=== PATIENT | female | born 1960 | race Caucasian/White ===

== ENCOUNTER → 2018-10-04 | Outpatient (CLI) | payer OTHER ==
[~2018-10-04] MED LIST: ALPR.5 PO; AMPDEX5 PO; Adderall 20 MG20 MG PO; CEPH500 PO; CLON1 PO; HYDACE5 PO; HYDACE5325 PO; PENVK500 PO; ROXICODONE5 MG PO; RXHYD5325 PO; SERT100 PO; SERT25 PO
[2018-10-04 16:03] LABS: Source, Urine Clean Catch
[2018-10-04 16:40] LABS: Bilirubin, Urine Neg (Neg); Blood, Urine 2+ (Neg); Glucose Qualitative, Urine Neg (Neg); Ketones, Urine Neg (Neg); Leukocyte Esterase, Urine 3+ (Neg); Nitrite, Urine Pos (Neg); Protein, Urine 1+ (Neg); Urobilinogen, Urine 3+ (Normal)
[2018-10-04 17:23] LABS: Appearance, Urine Cloudy (Clear); Color, Urine Yellow (P-Yellow)
[2018-10-04 17:24] LABS: Bacteria Many /hpf; Squamous Epithelial Cells Many /hpf (Few)
== END | disposition home or self-care (01) ==
LOC: LAB SHORT 16:01 → LAB 16:01
PROVIDERS: Nurse Practitioner
DX: N39.0 Urinary tract infection, site not specified (principal)
CPT/HCPCS: 81001; 87077; 87086; 87186

== ENCOUNTER → 2018-12-27 | Outpatient (CLI) | payer OTHER ==
[2018-12-27 16:10] LABS: U Amphetamine Screen DETECTED; U Barbituate Screen Not Detected; U Benzodiazapine Screen DETECTED; U Buprenorphine Screen Not Detected; U Cannabinoids Screen Not Detected; U Cocaine Screen Not Detected; U Methadone Screen Not Detected; U Methamphetamine Screen DETECTED; U Opiates Screen Not Detected; U Oxycodone Screen Not Detected; U Phencyclidine Screen Not Detected; U Propoxyphene Screen Not Detected
== END ==
LOC: LAB SHORT 15:12 → LAB 15:12
PROVIDERS: Psychiatry & Neurology Psychiatry
DX: F33.1 Major depressive disorder, recurrent, moderate (principal)

== ENCOUNTER 2019-04-09 21:28 | Inpatient (IN) | payer OTHER ==
[~2019-04-09] VITALS: Ht 165.1 cm; Wt 134.2 kg
[2019-04-09 22:23] LABS: BASOPHILS ABSOLUTE AUTO 0.03 K/mm3 (0.00-0.23); BASOPHILS PERCENT AUTO 0 % (0-2); EOSINOPHILS ABSOLUTE AUTO 0.17 K/mm3 (0.00-0.68); EOSINOPHILS PERCENT AUTO 2 % (0-6); Hematocrit 37.1 % (33.0-51.0); Hemoglobin 12.5 g/dL (11.5-16.0); IMMATURE GRAN ABSOLUTE AUTO 0.02 K/mm3 (0.00-0.10); IMMATURE GRAN PERCENT AUTO 0 % (0-1); LYMPHOCYTES ABSOLUTE AUTO 2.29 K/mm3 (0.84-5.20); LYMPHOCYTES PERCENT AUTO 31 % (21-46); MONOCYTES ABSOLUTE AUTO 0.68 K/mm3 (0.16-1.47); MONOCYTES PERCENT AUTO 9 % (4-13); Mean Corpuscular HGB 31.7 pg (26.0-34.0); Mean Corpuscular HGB Conc 33.7 g/dL (31.5-36.5); Mean Corpuscular Volume 94 fL (80-100); Mean Platelet Volume 10.3 fL (9.1-12.4); NEUTROPHILS ABSOLUTE AUTO 4.18 K/mm3 (1.96-9.15); NEUTROPHILS PERCENT AUTO 57 % (41-73); Platelet Count 105 K/mm3 (150-400); RDW Coefficient Variation 12.6 % (11.7-14.2); RDW Standard Deviation 43.8 fL (35.1-46.3); Red Blood Cell Count 3.94 M/mm3 (3.80-5.20); White Blood Cell Count 7.37 K/mm3 (4.00-11.30)
[2019-04-09 22:33] LABS: Alanine Aminotransfer (ALT/SGP 44 U/L (12-78); Albumin/Globulin Ratio 0.7 (0.8-1.8); Alk Phos 101 U/L (50-136); Anion Gap 6 mmol/L (6-16); Aspartate Aminotrans (AST/SGOT 60 U/L (12-37); Blood Urea Nitrogen 13 mg/dL (8-24); Bun/Creatinine Ratio 20.9 (12.0-20.0); CO2, Blood 24 mmol/L (21-32); Calcium, Blood 8.4 mg/dL (8.5-10.1); Chloride, Blood 108 mmol/L (98-108); Creatinine, Blood 0.62 mg/dL (0.40-1.00); Globulin, Blood 4.2 g/dL (2.2-4.0); Glomerular Filtration Rate >60 (60-); Glucose, Blood 102 mg/dL (70-99); Potassium, Blood 3.6 mmol/L (3.5-5.5); Sodium, Blood 138 mmol/L (136-145); Total Protein, Blood 7.2 g/dL (6.4-8.2)
--- NOTE | 2019-04-10 06:21 | NUR ---
Shift summary. Pt admitted at 0320. Pt just wants to be left alone. Unable to get pt to give us history. Abdomen distended. umbilical area very tender to touch. Pt given fentanyl and haldol in er so sleeps if we leave her alone. IV was bad and had to be replaced in right arm. LR started.
--- NOTE | 2019-04-10 14:25 | NUR ---
PT GOING TO SURGERY NOW, INFORMED THE PT'S MOTHER VIA PHONE CALL
--- NOTE | 2019-04-10 14:51 | NUR ---
Patient confirms NPO status and agrees with scheduled surgery. History, Chart, Medications and Allergies reviewed before start of procedure.Surgical site prepped with 2% Chlorhexidine cloth wipe. PATIENT TRANSFERED VIA PT BED. HOVER MAT PLACED UNDER PT AFTER ARRIVAL. PT ABLE TO STAND AND ASSIST. 18G IV ALREADY IN PLACE IN RIGHT FOREARM UPON ARRIVAL TO SURGERY DEPT. PATENT AND HOOKED TO FLUIDS.
--- NOTE | 2019-04-10 16:32 | NUR ---
04/10/19 1632 Virgilio Glass 7800 ML CLEAR YELLOW FLUID DRAINED FROM ABDOMEN PRIOR TO PRIMARY REPAIR OF UMBILICAL HERNIA.
--- NOTE | 2019-04-10 17:45 | NUR ---
SUMMARY PT STILL IN SURGERY
--- NOTE | 2019-04-10 18:29 | NUR ---
PT BACK FROM OR, ABLE TO STAND AND TRANSFER TO THE BED, ABD SOFT, GAUZE TO BELLY BUTTON COVERED WITH CLEAR DRESSING, NO DRAINAGE, PT DENIES PAIN
[2019-04-11 05:03] LABS: BASOPHILS ABSOLUTE AUTO 0.01 K/mm3 (0.00-0.23); BASOPHILS PERCENT AUTO 0 % (0-2); EOSINOPHILS PERCENT AUTO 0 % (0-6); Hematocrit 42.2 % (33.0-51.0); IMMATURE GRAN ABSOLUTE AUTO 0.03 K/mm3 (0.00-0.10); IMMATURE GRAN PERCENT AUTO 1 % (0-1); LYMPHOCYTES ABSOLUTE AUTO 1.23 K/mm3 (0.84-5.20); LYMPHOCYTES PERCENT AUTO 19 % (21-46); MONOCYTES PERCENT AUTO 3 % (4-13); Mean Corpuscular HGB 31.3 pg (26.0-34.0); Mean Corpuscular HGB Conc 33.2 g/dL (31.5-36.5); Mean Corpuscular Volume 94 fL (80-100); Mean Platelet Volume 10.5 fL (9.1-12.4); NEUTROPHILS ABSOLUTE AUTO 5.04 K/mm3 (1.96-9.15); NEUTROPHILS PERCENT AUTO 77 % (41-73); Platelet Count 123 K/mm3 (150-400); RDW Coefficient Variation 12.3 % (11.7-14.2); RDW Standard Deviation 42.6 fL (35.1-46.3); Red Blood Cell Count 4.48 M/mm3 (3.80-5.20); White Blood Cell Count 6.51 K/mm3 (4.00-11.30)
--- NOTE | 2019-04-11 05:22 | NUR ---
Shift summary: Pt states she feels much better this am and has slept most of shift. No c/o discomfort during the night. Pt has been alert, oriented and coooperative with cares tonight. Tolerating antibiotics well. Banana bag given. No s/s detox noted.
[2019-04-11 05:34] LABS: Alanine Aminotransfer (ALT/SGP 36 U/L (12-78); Albumin, Blood 2.8 g/dL (3.4-5.0); Albumin/Globulin Ratio 0.7 (0.8-1.8); Alk Phos 66 U/L (50-136); Anion Gap 6 mmol/L (6-16); Aspartate Aminotrans (AST/SGOT 41 U/L (12-37); Bilirubin, Total 1.2 mg/dL (0.1-1.0); Blood Urea Nitrogen 10 mg/dL (8-24); Bun/Creatinine Ratio 16.7 (12.0-20.0); CO2, Blood 26 mmol/L (21-32); Calcium, Blood 8.2 mg/dL (8.5-10.1); Chloride, Blood 108 mmol/L (98-108); Globulin, Blood 4.3 g/dL (2.2-4.0); Glomerular Filtration Rate >60 (60-); Glucose, Blood 140 mg/dL (70-99); Magnesium, Blood 2.1 mg/dL (1.6-2.4); Phosphorus, Blood 3.6 mg/dL (2.5-4.9); Potassium, Blood 4.7 mmol/L (3.5-5.5); Sodium, Blood 140 mmol/L (136-145); Total Protein, Blood 7.1 g/dL (6.4-8.2)
[2019-04-11] MEDS ORDERED: ROXICODONE5 MG PO (17:06)
[2019-04-11] MEDS ORDERED: FOLI1 PO (17:06)
[2019-04-11] MEDS ORDERED: ONDA4ODT MM (17:07)
[2019-04-11] MEDS ORDERED: Culturelle1 CAP PO (17:07)
[2019-04-11] MEDS ORDERED: AMOCLA875 PO (17:09)
[2019-04-11] MEDS ORDERED: SERT100 PO (17:10)
[2019-04-11] MEDS ORDERED: Thiamine HCl100 MG PO (17:11)
--- NOTE | 2019-04-11 18:22 | NUR ---
PT DISCHARGED TO HOME. PT PROVIDED EDUCATION AND MEDICATION LIST. PT VERBALIZED UNDERSTANDING OF EDUCATION, MEDICATIONS, AND DISCHARGE INSTRUCTIONS. PT'S MOTHER IS PROVIDING TRANSPORTATION HOME. PT ALERT AND AMBULATORY. PT TAKEN TO MOTHER'S CAR IN WHEELCHAIR BY JOSE JASON. PT LEFT WITH BELONGINGS.
[2019-05-15] MEDS ORDERED: ALBU90OI INH (13:32)
[2019-05-15] MEDS ORDERED: DIPH50 PO (13:33)
[2019-05-15] MEDS ORDERED: Aldactone100 MG PO (13:33)
[2019-05-15] MEDS ORDERED: FURO40 PO (13:33)
== END 2019-04-11 18:05 | disposition home or self-care (01) | DRG 354 ==
LOC: ER 21:28 → MEDS 04-10 00:59
PROVIDERS: Emergency Medicine; Family Medicine; Surgery; ADMIT Family Medicine
PROC: 0W9G3ZZ Drainage of Peritoneal Cavity, Percutaneous Approach (ICD-10-PCS; 2019-04-10)
PROC: 0WQF0ZZ Repair Abdominal Wall, Open Approach (ICD-10-PCS; principal; 2019-04-10 13:30)
DX: K42.0 Umbilical hernia with obstruction, without gangrene (principal); E87.2 Acidosis; Z68.42 Body mass index [BMI] 45.0-49.9, adult; R65.10 Systemic inflammatory response syndrome (SIRS) of non-infectious origin without acute organ dysfunction; L03.311 Cellulitis of abdominal wall; K70.31 Alcoholic cirrhosis of liver with ascites; E66.01 Morbid (severe) obesity due to excess calories; B18.2 Chronic viral hepatitis C; F41.9 Anxiety disorder, unspecified; F32.9 Major depressive disorder, single episode, unspecified; F98.8 Other specified behavioral and emotional disorders with onset usually occurring in childhood and adolescence; Z66 Do not resuscitate; F17.210 Nicotine dependence, cigarettes, uncomplicated; D69.6 Thrombocytopenia, unspecified; F10.10 Alcohol abuse, uncomplicated; Z79.899 Other long term (current) drug therapy; Z88.8 Allergy status to other drugs, medicaments and biological substances
CPT/HCPCS: 36415; 74177; 80053; 82140; 83605; 83735; 84100; 85025; 87040; 96361; 96365; 96375; 99285-25; J1100; J1170; J1630; J1650; J2405; J2543; J2704; J3010; J3411; J3475; J7030; J7042; J7050; J7120; Q9967

== ENCOUNTER 2019-04-17 10:00 | Emergency (ER) | payer OTHER ==
[~2019-04-17] VITALS: Ht 165.1 cm; Wt 129.3 kg
[~2019-04-17 10:00] MED LIST changes: +AMOCLA875 PO; +Culturelle1 CAP PO; +FOLI1 PO; +ONDA4ODT MM; +Thiamine HCl100 MG PO
[2019-04-17 10:41] LABS: BASOPHILS ABSOLUTE AUTO 0.03 K/mm3 (0.00-0.23); BASOPHILS PERCENT AUTO 0 % (0-2); EOSINOPHILS ABSOLUTE AUTO 0.19 K/mm3 (0.00-0.68); EOSINOPHILS PERCENT AUTO 3 % (0-6); Hematocrit 39.9 % (33.0-51.0); IMMATURE GRAN ABSOLUTE AUTO 0.02 K/mm3 (0.00-0.10); IMMATURE GRAN PERCENT AUTO 0 % (0-1); LYMPHOCYTES ABSOLUTE AUTO 2.46 K/mm3 (0.84-5.20); LYMPHOCYTES PERCENT AUTO 37 % (21-46); MONOCYTES ABSOLUTE AUTO 0.57 K/mm3 (0.16-1.47); MONOCYTES PERCENT AUTO 9 % (4-13); Mean Corpuscular HGB 31.3 pg (26.0-34.0); Mean Corpuscular HGB Conc 32.6 g/dL (31.5-36.5); Mean Corpuscular Volume 96 fL (80-100); Mean Platelet Volume 10.3 fL (9.1-12.4); NEUTROPHILS PERCENT AUTO 51 % (41-73); Platelet Count 118 K/mm3 (150-400); RDW Coefficient Variation 13.1 % (11.7-14.2); RDW Standard Deviation 46.5 fL (35.1-46.3); Red Blood Cell Count 4.15 M/mm3 (3.80-5.20); White Blood Cell Count 6.67 K/mm3 (4.00-11.30)
[2019-04-17 10:54] LABS: Alanine Aminotransfer (ALT/SGP 37 U/L (12-78); Albumin, Blood 2.7 g/dL (3.4-5.0); Albumin/Globulin Ratio 0.7 (0.8-1.8); Alk Phos 156 U/L (50-136); Anion Gap 5 mmol/L (6-16); Aspartate Aminotrans (AST/SGOT 52 U/L (12-37); Bilirubin, Total 0.5 mg/dL (0.1-1.0); Blood Urea Nitrogen 8 mg/dL (8-24); Bun/Creatinine Ratio 14.5 (12.0-20.0); CO2, Blood 25 mmol/L (21-32); Calcium, Blood 8.2 mg/dL (8.5-10.1); Chloride, Blood 112 mmol/L (98-108); Creatinine, Blood 0.55 mg/dL (0.40-1.00); Globulin, Blood 3.9 g/dL (2.2-4.0); Glomerular Filtration Rate >60 (60-); Glucose, Blood 116 mg/dL (70-99); Potassium, Blood 4.6 mmol/L (3.5-5.5); Sodium, Blood 142 mmol/L (136-145); Total Protein, Blood 6.6 g/dL (6.4-8.2)
[2019-04-17 10:55] LABS: International Normalized Ratio 1.08; Prothrombin Time Results 11.4 Sec (9.7-11.5)
[2019-04-17] MEDS ORDERED: Aldactone50 MG PO (12:03)
[2019-05-15] MEDS ORDERED: ALBU90OI INH (13:32)
[2019-05-15] MEDS ORDERED: DIPH50 PO (13:33)
[2019-05-15] MEDS ORDERED: Aldactone100 MG PO (13:33)
[2019-05-15] MEDS ORDERED: FURO40 PO (13:33)
== END 2019-04-17 12:21 | disposition home or self-care (01) ==
LOC: ER 10:00
PROVIDERS: Emergency Medicine
DX: R18.8 Other ascites (principal); F41.9 Anxiety disorder, unspecified; F32.9 Major depressive disorder, single episode, unspecified; F98.8 Other specified behavioral and emotional disorders with onset usually occurring in childhood and adolescence; F17.210 Nicotine dependence, cigarettes, uncomplicated; Z88.8 Allergy status to other drugs, medicaments and biological substances
CPT/HCPCS: 36415; 49083; 80053; 85025; 85610; 85730; 99284-25

== ENCOUNTER 2019-04-23 17:25 | Emergency (ER) | payer OTHER ==
[~2019-04-23] VITALS: Ht 165.1 cm; Wt 129.3 kg
[~2019-04-23 17:25] MED LIST changes: +Aldactone50 MG PO
[2019-04-23 18:42] LABS: BASOPHILS ABSOLUTE AUTO 0.04 K/mm3 (0.00-0.23); BASOPHILS PERCENT AUTO 0 % (0-2); EOSINOPHILS ABSOLUTE AUTO 0.13 K/mm3 (0.00-0.68); EOSINOPHILS PERCENT AUTO 2 % (0-6); Hematocrit 43.8 % (33.0-51.0); Hemoglobin 14.2 g/dL (11.5-16.0); IMMATURE GRAN ABSOLUTE AUTO 0.03 K/mm3 (0.00-0.10); IMMATURE GRAN PERCENT AUTO 0 % (0-1); LYMPHOCYTES PERCENT AUTO 34 % (21-46); MONOCYTES ABSOLUTE AUTO 0.61 K/mm3 (0.16-1.47); MONOCYTES PERCENT AUTO 7 % (4-13); Mean Corpuscular HGB 30.9 pg (26.0-34.0); Mean Corpuscular HGB Conc 32.4 g/dL (31.5-36.5); Mean Corpuscular Volume 95 fL (80-100); Mean Platelet Volume 10.1 fL (9.1-12.4); NEUTROPHILS ABSOLUTE AUTO 5.11 K/mm3 (1.96-9.15); NEUTROPHILS PERCENT AUTO 57 % (41-73); Platelet Count 153 K/mm3 (150-400); RDW Coefficient Variation 12.4 % (11.7-14.2); RDW Standard Deviation 43.4 fL (35.1-46.3); White Blood Cell Count 8.92 K/mm3 (4.00-11.30)
[2019-04-23 18:57] LABS: International Normalized Ratio 1.08; Prothrombin Time Results 11.4 Sec (9.7-11.5)
[2019-04-23 19:13] LABS: Alanine Aminotransfer (ALT/SGP 37 U/L (12-78); Albumin, Blood 3.2 g/dL (3.4-5.0); Albumin/Globulin Ratio 0.7 (0.8-1.8); Alk Phos 125 U/L (50-136); Anion Gap 4 mmol/L (6-16); Aspartate Aminotrans (AST/SGOT 53 U/L (12-37); Bilirubin, Total 0.8 mg/dL (0.1-1.0); Blood Urea Nitrogen 16 mg/dL (8-24); Bun/Creatinine Ratio 22.4 (12.0-20.0); CO2, Blood 26 mmol/L (21-32); Calcium, Blood 8.5 mg/dL (8.5-10.1); Chloride, Blood 105 mmol/L (98-108); Creatinine, Blood 0.71 mg/dL (0.40-1.00); Globulin, Blood 4.8 g/dL (2.2-4.0); Glomerular Filtration Rate >60 (60-); Glucose, Blood 109 mg/dL (70-99); Potassium, Blood 4.4 mmol/L (3.5-5.5); Sodium, Blood 135 mmol/L (136-145)
[2019-04-23] MEDS ORDERED: ALPR1 PO (19:45)
[2019-04-23] MEDS ORDERED: CLON1 PO (19:45)
[2019-05-15] MEDS ORDERED: ALBU90OI INH (13:32)
[2019-05-15] MEDS ORDERED: DIPH50 PO (13:33)
[2019-05-15] MEDS ORDERED: FURO40 PO (13:33)
[2019-05-15] MEDS ORDERED: Aldactone100 MG PO (13:33)
== END 2019-04-23 21:14 | disposition home or self-care (01) ==
LOC: ER 17:25
PROVIDERS: Physician Assistant
DX: K70.31 Alcoholic cirrhosis of liver with ascites (principal); Z88.8 Allergy status to other drugs, medicaments and biological substances; Z79.899 Other long term (current) drug therapy; F32.9 Major depressive disorder, single episode, unspecified; F41.9 Anxiety disorder, unspecified; F17.210 Nicotine dependence, cigarettes, uncomplicated
CPT/HCPCS: 36415; 80053; 85025; 85610; 99284

== ENCOUNTER 2019-04-24 15:02 | Day surgery (SDC) | payer OTHER ==
[~2019-04-24 15:02] MED LIST changes: +ALPR1 PO
[2019-05-15] MEDS ORDERED: ALBU90OI INH (13:32)
[2019-05-15] MEDS ORDERED: Aldactone100 MG PO (13:33)
[2019-05-15] MEDS ORDERED: FURO40 PO (13:33)
[2019-05-15] MEDS ORDERED: DIPH50 PO (13:33)
== END 2019-04-24 23:07 | disposition home or self-care (01) ==
LOC: US 15:02
DX: K70.31 Alcoholic cirrhosis of liver with ascites (principal); F41.9 Anxiety disorder, unspecified; F32.9 Major depressive disorder, single episode, unspecified; F17.210 Nicotine dependence, cigarettes, uncomplicated; Z88.8 Allergy status to other drugs, medicaments and biological substances; Z79.899 Other long term (current) drug therapy
CPT/HCPCS: 49083

== ENCOUNTER 2019-04-30 11:00 | Day surgery (SDC) | payer OTHER ==
[2019-05-15] MEDS ORDERED: ALBU90OI INH (13:32)
[2019-05-15] MEDS ORDERED: FURO40 PO (13:33)
[2019-05-15] MEDS ORDERED: Aldactone100 MG PO (13:33)
[2019-05-15] MEDS ORDERED: DIPH50 PO (13:33)
== END 2019-04-30 22:56 | disposition home or self-care (01) ==
LOC: US 11:00
DX: K70.31 Alcoholic cirrhosis of liver with ascites (principal)
CPT/HCPCS: 76705

== ENCOUNTER 2019-05-07 20:09 | Emergency (ER) | payer OTHER ==
[~2019-05-07] VITALS: Ht 165.1 cm; Wt 120.2 kg
[2019-05-07 22:37] LABS: BASOPHILS ABSOLUTE AUTO 0.03 K/mm3 (0.00-0.23); BASOPHILS PERCENT AUTO 0 % (0-2); EOSINOPHILS ABSOLUTE AUTO 0.17 K/mm3 (0.00-0.68); EOSINOPHILS PERCENT AUTO 2 % (0-6); Hematocrit 45.4 % (33.0-51.0); IMMATURE GRAN ABSOLUTE AUTO 0.06 K/mm3 (0.00-0.10); IMMATURE GRAN PERCENT AUTO 1 % (0-1); LYMPHOCYTES ABSOLUTE AUTO 3.27 K/mm3 (0.84-5.20); LYMPHOCYTES PERCENT AUTO 31 % (21-46); MONOCYTES ABSOLUTE AUTO 0.81 K/mm3 (0.16-1.47); MONOCYTES PERCENT AUTO 8 % (4-13); Mean Corpuscular HGB 30.7 pg (26.0-34.0); Mean Corpuscular Volume 93 fL (80-100); Mean Platelet Volume 10.2 fL (9.1-12.4); NEUTROPHILS ABSOLUTE AUTO 6.11 K/mm3 (1.96-9.15); NEUTROPHILS PERCENT AUTO 58 % (41-73); Platelet Count 169 K/mm3 (150-400); RDW Coefficient Variation 12.6 % (11.7-14.2); RDW Standard Deviation 42.7 fL (35.1-46.3); Red Blood Cell Count 4.89 M/mm3 (3.80-5.20); White Blood Cell Count 10.45 K/mm3 (4.00-11.30)
[2019-05-07 22:55] LABS: Alanine Aminotransfer (ALT/SGP 28 U/L (12-78); Albumin, Blood 3.2 g/dL (3.4-5.0); Albumin/Globulin Ratio 0.7 (0.8-1.8); Alk Phos 98 U/L (50-136); Anion Gap 2 mmol/L (6-16); Aspartate Aminotrans (AST/SGOT 46 U/L (12-37); Blood Urea Nitrogen 12 mg/dL (8-24); CO2, Blood 29 mmol/L (21-32); Calcium, Blood 8.8 mg/dL (8.5-10.1); Chloride, Blood 104 mmol/L (98-108); Creatinine, Blood 0.93 mg/dL (0.40-1.00); Globulin, Blood 4.5 g/dL (2.2-4.0); Glomerular Filtration Rate >60 (60-); Glucose, Blood 107 mg/dL (70-99); Sodium, Blood 135 mmol/L (136-145); Total Protein, Blood 7.7 g/dL (6.4-8.2)
[2019-05-07] MEDS ORDERED: SPIR25 PO (23:43)
[2019-05-15] MEDS ORDERED: ALBU90OI INH (13:32)
[2019-05-15] MEDS ORDERED: Aldactone100 MG PO (13:33)
[2019-05-15] MEDS ORDERED: FURO40 PO (13:33)
[2019-05-15] MEDS ORDERED: DIPH50 PO (13:33)
== END 2019-05-08 00:16 | disposition home or self-care (01) ==
LOC: ER 20:09
PROVIDERS: Physician Assistant
DX: R18.8 Other ascites (principal); Z88.8 Allergy status to other drugs, medicaments and biological substances; Z79.899 Other long term (current) drug therapy; F32.9 Major depressive disorder, single episode, unspecified; F41.9 Anxiety disorder, unspecified; F17.210 Nicotine dependence, cigarettes, uncomplicated
CPT/HCPCS: 36415; 80053; 85025; 99283

== ENCOUNTER 2019-05-12 14:28 | Day surgery (SDC) | payer OTHER ==
[~2019-05-12 14:28] MED LIST changes: +SPIR25 PO
[2019-05-15] MEDS ORDERED: ALBU90OI INH (13:32)
[2019-05-15] MEDS ORDERED: DIPH50 PO (13:33)
[2019-05-15] MEDS ORDERED: FURO40 PO (13:33)
[2019-05-15] MEDS ORDERED: Aldactone100 MG PO (13:33)
== END 2019-05-12 22:49 | disposition home or self-care (01) ==
LOC: US 14:28
DX: K70.31 Alcoholic cirrhosis of liver with ascites (principal)
CPT/HCPCS: 49083

== ENCOUNTER 2019-05-23 05:00 | Day surgery (SDC) | payer OTHER ==
[~2019-05-23] VITALS: Ht 165.1 cm; Wt 118.5 kg
[~2019-05-23 05:00] MED LIST changes: +ALBU90OI INH; +Aldactone100 MG PO; +DIPH50 PO; +FURO40 PO
[2019-05-23] MEDS ORDERED: Aldactone100 MG (10:01)
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
== END 2019-05-23 11:50 | disposition home or self-care (01) ==
LOC: ORSCSDS 05:00
DX: K74.60 Unspecified cirrhosis of liver (principal); Z86.010 Personal history of colon polyps; Z53.9 Procedure and treatment not carried out, unspecified reason
CPT/HCPCS: J7120

== ENCOUNTER 2019-07-12 20:19 | Emergency (ER) | payer OTHER ==
[~2019-07-12] VITALS: Ht 165.1 cm; Wt 117.9 kg
[~2019-07-12 20:19] MED LIST changes: +Aldactone100 MG
[2019-07-12 21:20] LABS: BASOPHILS ABSOLUTE AUTO 0.03 K/mm3 (0.00-0.23); BASOPHILS PERCENT AUTO 0 % (0-2); EOSINOPHILS ABSOLUTE AUTO 0.12 K/mm3 (0.00-0.68); EOSINOPHILS PERCENT AUTO 2 % (0-6); Hematocrit 48.2 % (33.0-51.0); Hemoglobin 15.4 g/dL (11.5-16.0); IMMATURE GRAN ABSOLUTE AUTO 0.02 K/mm3 (0.00-0.10); IMMATURE GRAN PERCENT AUTO 0 % (0-1); LYMPHOCYTES ABSOLUTE AUTO 2.24 K/mm3 (0.84-5.20); LYMPHOCYTES PERCENT AUTO 29 % (21-46); MONOCYTES ABSOLUTE AUTO 0.53 K/mm3 (0.16-1.47); MONOCYTES PERCENT AUTO 7 % (4-13); Mean Corpuscular HGB 28.9 pg (26.0-34.0); Mean Corpuscular Volume 91 fL (80-100); Mean Platelet Volume 9.6 fL (9.1-12.4); NEUTROPHILS PERCENT AUTO 62 % (41-73); Platelet Count 168 K/mm3 (150-400); RDW Coefficient Variation 14.1 % (11.7-14.2); RDW Standard Deviation 47.4 fL (35.1-46.3); Red Blood Cell Count 5.32 M/mm3 (3.80-5.20); White Blood Cell Count 7.74 K/mm3 (4.00-11.30)
[2019-07-12 21:35] LABS: International Normalized Ratio 1.13; Prothrombin Time Results 11.8 Sec (9.7-11.5)
[2019-07-12 21:38] LABS: Alanine Aminotransfer (ALT/SGP 35 U/L (12-78); Albumin, Blood 3.2 g/dL (3.4-5.0); Albumin/Globulin Ratio 0.7 (0.8-1.8); Alk Phos 106 U/L (50-136); Anion Gap 7 mmol/L (6-16); Aspartate Aminotrans (AST/SGOT 63 U/L (12-37); Bilirubin, Total 0.6 mg/dL (0.1-1.0); Blood Urea Nitrogen 17 mg/dL (8-24); Bun/Creatinine Ratio 22.5 (12.0-20.0); CO2, Blood 22 mmol/L (21-32); Calcium, Blood 8.2 mg/dL (8.5-10.1); Chloride, Blood 109 mmol/L (98-108); Creatinine, Blood 0.75 mg/dL (0.40-1.00); Globulin, Blood 4.9 g/dL (2.2-4.0); Glomerular Filtration Rate >60 (60-); Glucose, Blood 104 mg/dL (70-99); Sodium, Blood 138 mmol/L (136-145); Total Protein, Blood 8.1 g/dL (6.4-8.2)
== END 2019-07-12 23:05 | disposition home or self-care (01) ==
LOC: ER 20:19
PROVIDERS: Physician Assistant
DX: K70.31 Alcoholic cirrhosis of liver with ascites (principal); F32.9 Major depressive disorder, single episode, unspecified; F41.9 Anxiety disorder, unspecified; Z88.8 Allergy status to other drugs, medicaments and biological substances; Z88.1 Allergy status to other antibiotic agents; Z79.899 Other long term (current) drug therapy; Z87.891 Personal history of nicotine dependence
CPT/HCPCS: 80053; 82140; 85025; 85610; 99284

== ENCOUNTER 2019-07-18 11:03 | Day surgery (SDC) | payer OTHER | END 2019-07-18 13:27 | disposition home or self-care (01) | LOC: ATC 11:03 | DX: K70.31 Alcoholic cirrhosis of liver with ascites (principal); B18.2 Chronic viral hepatitis C; Z79.51 Long term (current) use of inhaled steroids; Z79.2 Long term (current) use of antibiotics; Z79.899 Other long term (current) drug therapy; Z88.1 Allergy status to other antibiotic agents; Z88.8 Allergy status to other drugs, medicaments and biological substances; Z87.891 Personal history of nicotine dependence | CPT/HCPCS: 49083; 96365; P9046 ==

== ENCOUNTER 2019-08-06 10:57 | Emergency (ER) | payer OTHER ==
[~2019-08-06] VITALS: Ht 165.1 cm; Wt 120.2 kg
[2019-08-06 11:37] LABS: BASOPHILS ABSOLUTE AUTO 0.06 K/mm3 (0.00-0.23); BASOPHILS PERCENT AUTO 1 % (0-2); EOSINOPHILS ABSOLUTE AUTO 0.17 K/mm3 (0.00-0.68); EOSINOPHILS PERCENT AUTO 2 % (0-6); Hemoglobin 17.4 g/dL (11.5-16.0); IMMATURE GRAN ABSOLUTE AUTO 0.03 K/mm3 (0.00-0.10); IMMATURE GRAN PERCENT AUTO 0 % (0-1); LYMPHOCYTES ABSOLUTE AUTO 3.18 K/mm3 (0.84-5.20); LYMPHOCYTES PERCENT AUTO 33 % (21-46); MONOCYTES ABSOLUTE AUTO 0.72 K/mm3 (0.16-1.47); MONOCYTES PERCENT AUTO 8 % (4-13); Mean Corpuscular HGB 28.2 pg (26.0-34.0); Mean Corpuscular HGB Conc 31.6 g/dL (31.5-36.5); Mean Corpuscular Volume 89 fL (80-100); Mean Platelet Volume 9.4 fL (9.1-12.4); NEUTROPHILS ABSOLUTE AUTO 5.37 K/mm3 (1.96-9.15); NEUTROPHILS PERCENT AUTO 56 % (41-73); Platelet Count 209 K/mm3 (150-400); RDW Coefficient Variation 14.4 % (11.7-14.2); RDW Standard Deviation 47.3 fL (35.1-46.3); Red Blood Cell Count 6.16 M/mm3 (3.80-5.20); White Blood Cell Count 9.53 K/mm3 (4.00-11.30)
[2019-08-06 11:51] LABS: International Normalized Ratio 1.08; Prothrombin Time Results 11.4 Sec (9.7-11.5)
[2019-08-06 11:59] LABS: Alanine Aminotransfer (ALT/SGP 39 U/L (12-78); Albumin, Blood 3.1 g/dL (3.4-5.0); Albumin/Globulin Ratio 0.6 (0.8-1.8); Alk Phos 92 U/L (50-136); Anion Gap 7 mmol/L (6-16); Aspartate Aminotrans (AST/SGOT 69 U/L (12-37); Bilirubin, Total 0.9 mg/dL (0.1-1.0); Blood Urea Nitrogen 17 mg/dL (8-24); Bun/Creatinine Ratio 20.2 (12.0-20.0); CO2, Blood 27 mmol/L (21-32); Calcium, Blood 8.9 mg/dL (8.5-10.1); Chloride, Blood 105 mmol/L (98-108); Creatinine, Blood 0.84 mg/dL (0.40-1.00); Globulin, Blood 5.1 g/dL (2.2-4.0); Glomerular Filtration Rate >60 (60-); Glucose, Blood 106 mg/dL (70-99); Sodium, Blood 139 mmol/L (136-145); Total Protein, Blood 8.2 g/dL (6.4-8.2)
== END 2019-08-06 15:52 | disposition home or self-care (01) ==
LOC: ER 10:57
PROVIDERS: Emergency Medicine
DX: R18.8 Other ascites (principal); F32.9 Major depressive disorder, single episode, unspecified; F41.9 Anxiety disorder, unspecified; Z88.8 Allergy status to other drugs, medicaments and biological substances; Z88.1 Allergy status to other antibiotic agents; Z79.899 Other long term (current) drug therapy; Z79.51 Long term (current) use of inhaled steroids; Z87.891 Personal history of nicotine dependence
CPT/HCPCS: 36415; 80053; 83690; 85025; 85610; 99283

== ENCOUNTER 2019-08-07 16:02 | Day surgery (SDC) | payer OTHER | END 2019-08-07 23:23 | disposition home or self-care (01) | LOC: US 16:02 | DX: K74.60 Unspecified cirrhosis of liver (principal); R18.8 Other ascites; B18.2 Chronic viral hepatitis C | CPT/HCPCS: 49083 ==

== ENCOUNTER 2019-08-13 00:03 | Day surgery (SDC) | payer OTHER ==
--- NOTE | 2019-08-13 15:20 | NUR ---
MARLENE SRINIVASAN RN ATTEMPTED 2 IV STARTS
--- NOTE | 2019-08-13 15:29 | NUR ---
NOT ABLE TO ACCESS PATENT IV X2, ARSEN PuentesRN IN TO PLACE IV
== END 2019-08-13 16:16 | disposition home or self-care (01) ==
LOC: ATC 00:03 → US 00:03 → ATC 16:16
DX: K70.31 Alcoholic cirrhosis of liver with ascites (principal); B18.2 Chronic viral hepatitis C; F41.8 Other specified anxiety disorders; F98.8 Other specified behavioral and emotional disorders with onset usually occurring in childhood and adolescence; R01.1 Cardiac murmur, unspecified; Z88.1 Allergy status to other antibiotic agents; Z88.8 Allergy status to other drugs, medicaments and biological substances; Z79.899 Other long term (current) drug therapy; Z87.891 Personal history of nicotine dependence
CPT/HCPCS: 49083; 96365; P9046

== ENCOUNTER 2019-08-29 14:38 | Day surgery (SDC) | payer OTHER | END 2019-08-29 22:55 | disposition home or self-care (01) | LOC: US 14:38 | DX: K74.60 Unspecified cirrhosis of liver (principal); R18.8 Other ascites; Z87.891 Personal history of nicotine dependence; Z79.899 Other long term (current) drug therapy; Z88.1 Allergy status to other antibiotic agents; Z88.8 Allergy status to other drugs, medicaments and biological substances | CPT/HCPCS: 49083 ==

== ENCOUNTER 2019-09-12 14:01 | Day surgery (SDC) | payer OTHER | END 2019-09-12 23:38 | disposition home or self-care (01) | LOC: US 14:01 | DX: R18.8 Other ascites (principal); K74.60 Unspecified cirrhosis of liver | CPT/HCPCS: 49083 ==

== ENCOUNTER 2019-09-25 18:47 | Emergency (ER) | payer OTHER ==
[~2019-09-25] VITALS: Ht 165.1 cm; Wt 120.2 kg
[2019-09-25 20:14] LABS: BASOPHILS ABSOLUTE AUTO 0.03 K/mm3 (0.00-0.23); BASOPHILS PERCENT AUTO 0 % (0-2); EOSINOPHILS ABSOLUTE AUTO 0.14 K/mm3 (0.00-0.68); EOSINOPHILS PERCENT AUTO 2 % (0-6); Hematocrit 49.5 % (33.0-51.0); Hemoglobin 16.3 g/dL (11.5-16.0); IMMATURE GRAN ABSOLUTE AUTO 0.03 K/mm3 (0.00-0.10); IMMATURE GRAN PERCENT AUTO 0 % (0-1); LYMPHOCYTES ABSOLUTE AUTO 2.11 K/mm3 (0.84-5.20); LYMPHOCYTES PERCENT AUTO 27 % (21-46); MONOCYTES ABSOLUTE AUTO 0.62 K/mm3 (0.16-1.47); MONOCYTES PERCENT AUTO 8 % (4-13); Mean Corpuscular HGB 29.5 pg (26.0-34.0); Mean Corpuscular HGB Conc 32.9 g/dL (31.5-36.5); Mean Corpuscular Volume 90 fL (80-100); Mean Platelet Volume 9.7 fL (9.1-12.4); NEUTROPHILS ABSOLUTE AUTO 4.84 K/mm3 (1.96-9.15); NEUTROPHILS PERCENT AUTO 62 % (41-73); Platelet Count 210 K/mm3 (150-400); RDW Coefficient Variation 13.7 % (11.7-14.2); RDW Standard Deviation 45.5 fL (35.1-46.3); Red Blood Cell Count 5.53 M/mm3 (3.80-5.20); White Blood Cell Count 7.77 K/mm3 (4.00-11.30)
[2019-09-25 20:32] LABS: International Normalized Ratio 1.06; Prothrombin Time Results 11.3 Sec (9.7-11.5)
[2019-09-25 20:33] LABS: Alanine Aminotransfer (ALT/SGP 27 U/L (12-78); Albumin, Blood 2.8 g/dL (3.4-5.0); Albumin/Globulin Ratio 0.6 (0.8-1.8); Alk Phos 85 U/L (50-136); Anion Gap 4 mmol/L (6-16); Aspartate Aminotrans (AST/SGOT 45 U/L (12-37); Bilirubin, Total 0.9 mg/dL (0.1-1.0); Blood Urea Nitrogen 16 mg/dL (8-24); Bun/Creatinine Ratio 20.7 (12.0-20.0); CO2, Blood 23 mmol/L (21-32); Calcium, Blood 8.4 mg/dL (8.5-10.1); Chloride, Blood 109 mmol/L (98-108); Creatinine, Blood 0.77 mg/dL (0.40-1.00); Globulin, Blood 4.9 g/dL (2.2-4.0); Glomerular Filtration Rate >60 (60-); Glucose, Blood 126 mg/dL (70-99); Potassium, Blood 3.9 mmol/L (3.5-5.5); Sodium, Blood 136 mmol/L (136-145); Total Protein, Blood 7.7 g/dL (6.4-8.2)
== END 2019-09-25 21:17 | disposition home or self-care (01) ==
LOC: ER 18:47
PROVIDERS: Physician Assistant
DX: R18.8 Other ascites (principal); F32.9 Major depressive disorder, single episode, unspecified; F41.9 Anxiety disorder, unspecified; Z88.8 Allergy status to other drugs, medicaments and biological substances; Z88.1 Allergy status to other antibiotic agents; Z79.899 Other long term (current) drug therapy; Z79.51 Long term (current) use of inhaled steroids; Z87.891 Personal history of nicotine dependence
CPT/HCPCS: 36415; 80053; 83880; 85025; 85610; 85730; 99283

== ENCOUNTER 2019-09-26 14:48 | Day surgery (SDC) | payer OTHER | END 2019-09-26 23:31 | disposition home or self-care (01) | LOC: US 14:48 | DX: R18.8 Other ascites (principal); K74.60 Unspecified cirrhosis of liver | CPT/HCPCS: 49083 ==

== ENCOUNTER 2019-10-03 00:45 | Day surgery (SDC) | payer OTHER | END 2019-10-03 12:30 | disposition home or self-care (01) | LOC: US 00:45 → ATC 00:45 → US 09:00 → ATC 12:30 | DX: K70.31 Alcoholic cirrhosis of liver with ascites (principal); F17.200 Nicotine dependence, unspecified, uncomplicated; F41.9 Anxiety disorder, unspecified; F32.9 Major depressive disorder, single episode, unspecified; Z88.1 Allergy status to other antibiotic agents; Z88.8 Allergy status to other drugs, medicaments and biological substances; Z79.899 Other long term (current) drug therapy | CPT/HCPCS: 49083; 96365; P9041; P9046 ==

== ENCOUNTER 2019-10-17 09:13 | Day surgery (SDC) | payer OTHER | END 2019-10-17 12:45 | disposition home or self-care (01) | LOC: US 09:13 → ATC 09:13 | DX: K74.60 Unspecified cirrhosis of liver (principal); R18.8 Other ascites; F32.9 Major depressive disorder, single episode, unspecified; F41.9 Anxiety disorder, unspecified; Z88.8 Allergy status to other drugs, medicaments and biological substances | CPT/HCPCS: 49083; 96365; P9041; P9046 ==

== ENCOUNTER 2019-10-31 00:33 | Day surgery (SDC) | payer OTHER | END 2019-10-31 12:00 | disposition home or self-care (01) | LOC: CT 00:33 → ATC 00:33 → CT 08:30 → US 09:00 → ATC 12:00 | DX: K70.31 Alcoholic cirrhosis of liver with ascites (principal); B18.2 Chronic viral hepatitis C; Z88.8 Allergy status to other drugs, medicaments and biological substances; Z88.1 Allergy status to other antibiotic agents; Z87.891 Personal history of nicotine dependence | CPT/HCPCS: 49083; 74170; P9046; Q9967 ==

== ENCOUNTER 2019-11-28 00:28 | Day surgery (SDC) | payer OTHER | END 2019-11-28 23:11 | disposition home or self-care (01) | LOC: US 00:28 | DX: K74.60 Unspecified cirrhosis of liver (principal); R18.8 Other ascites | CPT/HCPCS: 49083 ==

== ENCOUNTER → 2019-11-28 | Outpatient (CLI) | payer OTHER ==
[2019-11-28 10:02] LABS: BASOPHILS ABSOLUTE AUTO 0.05 K/mm3 (0.00-0.23); BASOPHILS PERCENT AUTO 1 % (0-2); EOSINOPHILS ABSOLUTE AUTO 0.12 K/mm3 (0.00-0.68); EOSINOPHILS PERCENT AUTO 2 % (0-6); Hematocrit 45.9 % (33.0-51.0); Hemoglobin 15.1 g/dL (11.5-16.0); IMMATURE GRAN ABSOLUTE AUTO 0.06 K/mm3 (0.00-0.10); IMMATURE GRAN PERCENT AUTO 1 % (0-1); LYMPHOCYTES ABSOLUTE AUTO 2.07 K/mm3 (0.84-5.20); LYMPHOCYTES PERCENT AUTO 26 % (21-46); MONOCYTES ABSOLUTE AUTO 0.73 K/mm3 (0.16-1.47); MONOCYTES PERCENT AUTO 9 % (4-13); Mean Corpuscular HGB 29.9 pg (26.0-34.0); Mean Corpuscular HGB Conc 32.9 g/dL (31.5-36.5); Mean Corpuscular Volume 91 fL (80-100); Mean Platelet Volume 9.8 fL (9.1-12.4); NEUTROPHILS ABSOLUTE AUTO 4.85 K/mm3 (1.96-9.15); NEUTROPHILS PERCENT AUTO 62 % (41-73); Platelet Count 177 K/mm3 (150-400); RDW Coefficient Variation 13.9 % (11.7-14.2); Red Blood Cell Count 5.05 M/mm3 (3.80-5.20); White Blood Cell Count 7.88 K/mm3 (4.00-11.30)
[2019-11-28 10:10] LABS: International Normalized Ratio 1.06; Prothrombin Time Results 11.3 Sec (9.7-11.5)
== END | disposition home or self-care (01) ==
LOC: LAB 09:35 → LAB SHORT 09:35 → LAB FUT 11-26 10:50 → EDSTATUS 11-26 10:50
PROVIDERS: Internal Medicine Gastroenterology
DX: R18.8 Other ascites (principal)
CPT/HCPCS: 85025; 85610; 85730

== ENCOUNTER 2019-12-12 09:01 | Day surgery (SDC) | payer OTHER | END 2019-12-12 14:10 | disposition home or self-care (01) | LOC: US 09:01 → ATC 09:01 | DX: K70.31 Alcoholic cirrhosis of liver with ascites (principal); F32.9 Major depressive disorder, single episode, unspecified; F41.9 Anxiety disorder, unspecified; Z79.899 Other long term (current) drug therapy; Z88.8 Allergy status to other drugs, medicaments and biological substances; Z87.891 Personal history of nicotine dependence | CPT/HCPCS: 49083; P9046 ==

== ENCOUNTER 2020-01-09 00:19 | Day surgery (SDC) | payer OTHER | END 2020-01-09 11:55 | disposition home or self-care (01) | LOC: ATC 00:19 → US 00:19 → ATC 11:55 | DX: K70.31 Alcoholic cirrhosis of liver with ascites (principal); F32.9 Major depressive disorder, single episode, unspecified; F41.9 Anxiety disorder, unspecified; F17.210 Nicotine dependence, cigarettes, uncomplicated; Z88.1 Allergy status to other antibiotic agents; Z88.8 Allergy status to other drugs, medicaments and biological substances; Z79.899 Other long term (current) drug therapy | CPT/HCPCS: 49083; 96365; P9046 ==

== ENCOUNTER 2020-03-12 09:30 | Day surgery (SDC) | payer OTHER ==
[~2020-03-12] VITALS: Ht 165.1 cm; Wt 103.7 kg
[~2020-03-12 09:30] MED LIST changes: -Aldactone100 MG; +EPCLUSA 400 MG1 EAC1 PO
--- NOTE | 2020-03-12 10:59 | NUR ---
"LISA LEES RN | REPORT OFF TO CHEYENNE JASON"
--- NOTE | 2020-03-12 11:01 | NUR ---
03/12/20 1101 Tiffani Vega History, Chart, Medications and Allergies reviewed before start of procedure. PATIENT CONFIRMS NPO STATUS AND AGREES WITH SCHEDULED PROCEDURE.MONITOR INTACT WITH CONTINUOUS PULSE OXIMETRY AND INTERMITTENT BP. O2 VIA N/C INTACT THROUGHOUT SEDATION/PROCEDURE. 3-LEAD EKG REVIEWED WITH PHYSICIAN PRIOR TO START OF PROCEDURE. ANESTHESIA CLEARANCE FOR PROPOFOL GIVEN BY DR. ACKERMAN.*
--- NOTE | 2020-03-12 13:02 | NUR ---
DISCHARGE SUMMARY PT A&OX4, VSS, CHAMP PO, DENIES N&V, DENIES PAIN. DC INSTRUCTIONS PROVIDED. PT REP UNDERSTANDING THOSE INSTRUCTIONS Discharge instructions reviewed with patient. Patient verbalizes understanding. Copy given to patient to take home. Discharged via wheelchair to private car for ride home. IV DC'D
== END 2020-03-12 22:49 | disposition home or self-care (01) ==
LOC: ORSCMMR 09:30 → ORD 10:45 → ORSCMMR 10:45
PROVIDERS: Internal Medicine Gastroenterology
PROC: 0DBL8ZX Excision of Transverse Colon, Via Natural or Artificial Opening Endoscopic, Diagnostic (ICD-10-PCS; principal; 2020-03-12 10:45)
DX: R10.84 Generalized abdominal pain (principal); Z86.010 Personal history of colon polyps; D12.3 Benign neoplasm of transverse colon; K57.30 Diverticulosis of large intestine without perforation or abscess without bleeding; K64.4 Residual hemorrhoidal skin tags; K64.8 Other hemorrhoids; B19.20 Unspecified viral hepatitis C without hepatic coma; K74.60 Unspecified cirrhosis of liver; F17.210 Nicotine dependence, cigarettes, uncomplicated; R18.8 Other ascites; F41.8 Other specified anxiety disorders; Z79.899 Other long term (current) drug therapy
CPT/HCPCS: 49083; 88305; J2704; J7120

== ENCOUNTER 2020-03-19 08:55 | Day surgery (SDC) | payer OTHER | END 2020-03-19 22:48 | disposition home or self-care (01) | LOC: US 08:55 | DX: K74.60 Unspecified cirrhosis of liver (principal); R18.8 Other ascites | CPT/HCPCS: 76705 ==

== ENCOUNTER 2020-04-02 08:56 | Day surgery (SDC) | payer OTHER | END 2020-04-02 22:53 | disposition home or self-care (01) | LOC: US 08:56 | DX: K74.60 Unspecified cirrhosis of liver (principal); R18.8 Other ascites | CPT/HCPCS: 76705 ==

== ENCOUNTER 2020-04-09 09:09 | Day surgery (SDC) | payer OTHER | END 2020-04-09 22:43 | disposition home or self-care (01) | LOC: US 09:09 | DX: R18.8 Other ascites (principal) | CPT/HCPCS: 76705 ==

== ENCOUNTER 2020-04-16 08:50 | Day surgery (SDC) | payer OTHER | END 2020-04-16 22:42 | disposition home or self-care (01) | LOC: US 08:50 | DX: K74.60 Unspecified cirrhosis of liver (principal); R18.8 Other ascites | CPT/HCPCS: 76705 ==

== ENCOUNTER → 2020-05-11 | Outpatient (CLI) | payer OTHER ==
[2020-05-11 15:31] LABS: BASOPHILS ABSOLUTE AUTO 0.02 K/mm3 (0.00-0.23); BASOPHILS PERCENT AUTO 0 % (0-2); EOSINOPHILS ABSOLUTE AUTO 0.14 K/mm3 (0.00-0.68); EOSINOPHILS PERCENT AUTO 2 % (0-6); Hematocrit 39.9 % (33.0-51.0); Hemoglobin 13.5 g/dL (11.5-16.0); IMMATURE GRAN ABSOLUTE AUTO 0.02 K/mm3 (0.00-0.10); IMMATURE GRAN PERCENT AUTO 0 % (0-1); LYMPHOCYTES ABSOLUTE AUTO 1.64 K/mm3 (0.84-5.20); LYMPHOCYTES PERCENT AUTO 24 % (21-46); MONOCYTES ABSOLUTE AUTO 0.44 K/mm3 (0.16-1.47); MONOCYTES PERCENT AUTO 7 % (4-13); Mean Corpuscular HGB 30.2 pg (26.0-34.0); Mean Corpuscular HGB Conc 33.8 g/dL (31.5-36.5); Mean Corpuscular Volume 89 fL (80-100); Mean Platelet Volume 9.9 fL (9.1-12.4); NEUTROPHILS ABSOLUTE AUTO 4.45 K/mm3 (1.96-9.15); NEUTROPHILS PERCENT AUTO 66 % (41-73); Platelet Count 189 K/mm3 (150-400); RDW Coefficient Variation 13.1 % (11.7-14.2); RDW Standard Deviation 42.5 fL (35.1-46.3); Red Blood Cell Count 4.47 M/mm3 (3.80-5.20); White Blood Cell Count 6.71 K/mm3 (4.00-11.30)
[2020-05-11 15:39] LABS: Albumin, Blood 4.2 g/dL (3.4-5.0); Albumin/Globulin Ratio 0.8 (0.8-1.8); Bilirubin, Total 0.5 mg/dL (0.1-1.0); Bun/Creatinine Ratio 23.3 (12.0-20.0); Calcium, Blood 9.8 mg/dL (8.5-10.1); Creatinine, Blood 1.2 mg/dL (0.40-1.00); Globulin, Blood 5.4 g/dL (2.2-4.0); Potassium, Blood 4.2 mmol/L (3.5-5.5); Total Protein, Blood 9.6 g/dL (6.4-8.2)
== END | disposition home or self-care (01) ==
LOC: LAB EV 15:21 → LAB SHORT 15:21
PROVIDERS: Physician Assistant
DX: R60.9 Edema, unspecified (principal)
CPT/HCPCS: 80053; 85025

== ENCOUNTER 2020-12-21 11:23 | Day surgery (SDC) | payer OTHER | END 2020-12-21 23:05 | disposition home or self-care (01) | LOC: US 11:23 → EDSTATUS 14:00 → US 23:05 | DX: K70.30 Alcoholic cirrhosis of liver without ascites (principal) | CPT/HCPCS: 76705 ==

== ENCOUNTER 2021-07-14 10:04 | Day surgery (SDC) | payer OTHER ==
[~2021-07-14] VITALS: Ht 165.1 cm; Wt 122.2 kg
[~2021-07-14 10:04] MED LIST changes: +DEXA4 PO
--- NOTE | 2021-07-14 12:03 | NUR ---
07/14/21 1203 Feli Murphy AFTER SPEAKING WITH DR. PAL AND ASSESSING PATIENT'S AIRWAY, DECISION WAS MADE TO PROCEED WITHOUT ANESTHESIOLOGIST INVOLVMENT. DR. ROBBINS NOTIFIED AND APPROVES. PT TOLERATED PROCEDURE VERY WELL.
== END 2021-07-14 11:40 | disposition home or self-care (01) ==
LOC: ORSCSDS 10:04
PROVIDERS: Internal Medicine Gastroenterology
PROC: 0DJ08ZZ Inspection of Upper Intestinal Tract, Via Natural or Artificial Opening Endoscopic (ICD-10-PCS; principal; 2021-07-14 15:00)
DX: K74.60 Unspecified cirrhosis of liver (principal); Z13.810 Encounter for screening for upper gastrointestinal disorder; F41.8 Other specified anxiety disorders; E55.9 Vitamin D deficiency, unspecified; B19.20 Unspecified viral hepatitis C without hepatic coma; Z79.899 Other long term (current) drug therapy
CPT/HCPCS: J0330; J0461; J2405; J2704; J7120

== ENCOUNTER 2023-02-25 06:26 | Inpatient (IN) | payer OTHER ==
[~2023-02-25] VITALS: Ht 165.1 cm; Wt 128.9 kg
[2023-02-25 07:39] LABS: BASOPHILS ABSOLUTE AUTO 0.04 K/mm3 (0.00-0.23); BASOPHILS PERCENT AUTO 0 % (0-2); EOSINOPHILS ABSOLUTE AUTO 0.01 K/mm3 (0.00-0.68); EOSINOPHILS PERCENT AUTO 0 % (0-6); Hematocrit 50.1 % (33.0-51.0); Hemoglobin 17.1 g/dL (11.5-16.0); IMMATURE GRAN ABSOLUTE AUTO 0.08 K/mm3 (0.00-0.10); IMMATURE GRAN PERCENT AUTO 0 % (0-1); LYMPHOCYTES ABSOLUTE AUTO 1.32 K/mm3 (0.84-5.20); LYMPHOCYTES PERCENT AUTO 7 % (21-46); MONOCYTES ABSOLUTE AUTO 1.35 K/mm3 (0.16-1.47); MONOCYTES PERCENT AUTO 8 % (4-13); Mean Corpuscular HGB 29.8 pg (26.0-34.0); Mean Corpuscular HGB Conc 34.1 g/dL (31.5-36.5); Mean Corpuscular Volume 87 fL (80-100); Mean Platelet Volume 9.8 fL (9.1-12.4); NEUTROPHILS ABSOLUTE AUTO 15.13 K/mm3 (1.96-9.15); NEUTROPHILS PERCENT AUTO 84 % (41-73); Platelet Count 261 K/mm3 (150-400); RDW Coefficient Variation 12.9 % (11.7-14.2); RDW Standard Deviation 41.3 fL (35.1-46.3); Red Blood Cell Count 5.73 M/mm3 (3.80-5.20); White Blood Cell Count 17.93 K/mm3 (4.00-11.30)
[2023-02-25 07:57] LABS: Albumin, Blood 3.6 g/dL (3.4-5.0); Albumin/Globulin Ratio 0.9 (0.8-1.8); Bilirubin, Total 0.5 mg/dL (0.1-1.0); Bun/Creatinine Ratio 27.1 (12.0-20.0); Calcium, Blood 8.8 mg/dL (8.5-10.1); Creatinine, Blood 0.81 mg/dL (0.40-1.00); Globulin, Blood 4.1 g/dL (2.2-4.0); Potassium, Blood 3.9 mmol/L (3.5-5.5); Total Protein, Blood 7.7 g/dL (6.4-8.2)
--- NOTE | 2023-02-25 15:14 | NUR ---
ASSUMED CARE OF PT- TELEPHONE REPORT COMPLETED WITH ED RN. PER REPORT PT HAD AN EPISODE OF LIQUID BLOODY STOOL THIS MORNING, NONE SINCE. PT ARRIVED ON MED FLOOR WOKE FROM SLEEP AND BEGAN WRETCHING, RUSHED TO THE BATHROOM WHERE SHE DRY HEAVED AND PASSED STOOL INTO A CLEAN HAT. WILL SEND SAMPLE FABIO.
[2023-02-25 15:27] VITALS: BP 160/102
--- NOTE | 2023-02-25 15:43 | NUR ---
PT HAD A BM 450ML OF AUDREY RED BLOOD. SAMPLE COLLECTED FOR GI PANEL AND SENT TO LAB. PT BACK IN BED. PLACED BSC NEXT TO THE BED, MEDICATED WITH ZOFRAN.
[2023-02-25 16:02] VITALS: BP 170/100
--- NOTE | 2023-02-25 16:10 | NUR ---
CALLED DR LLOYD- HE IS AWARE OF THE AUDREY RED BLOOD STOOL PT HAD UPON ADMIT, AND OF THE ELEVATED BP. H&H WAS JUST DRAWN FROM THE ED ORDER SCHEDULED AT 1400. AWARE, AWAITING RESULTS OF THIS LAB DRAW. NO NEW ORDERS AT THIS TIME.
[2023-02-25 16:15] LABS: Hematocrit 53.1 % (33.0-51.0)
[2023-02-25 17:05] VITALS: BP 182/112
--- NOTE | 2023-02-25 17:13 | NUR ---
CALLED DR LLOYD- HGB 18 ON RECHECK BP 182/112 PT SLEEPING AT THIS TIME. RECIEVED PRN ORDER FOR IV HYDRALIZINE FOR SBP OVER 180 AND CLEAR LIQUID DIET. PER VERBAL REPORT FROM ED RN DR PAL STATED THE PT CAN HAVE SOME CLEAR LIQUIDS IF SHE WANTS.
[2023-02-25 18:04] VITALS: BP 186/127
--- NOTE | 2023-02-25 18:27 | NUR ---
PT HAD ANOTHER EPISODE OF ABDOMINAL PAIN FOLLOWED BY A TRIP TO THE [facility] [place] WHERE SHE AGAIN HAD AUDREY RED BLOOD WITH A LITTLE STOOL. TOTAL VOLUME OF 300ML THIS TIME. BP ELEVATED, MEDICATED WITH IV HYDRALIZINE. PT ASSISTED BACK TO BED, ALSO ASSISTED TO CALL HER MOTHER ON THE PHONE. SPEAKING TO HER NOW. PT IS VERY GROGGY WITH SLURRED SPEECH, VERY LETHARGIC.
[2023-02-25 18:36] LABS: E. Coli O157 Detected (NOT DETECT); Shiga Toxin-prod E. coli-STEC Detected (NOT DETECT)
[2023-02-25 18:37] LABS: Adenovirus F 40/41 Not Detected (NOT DETECT); Astrovirus Not Detected (NOT DETECT); Campylobacter Sp Not Detected (NOT DETECT); Cryptosporidium Not Detected (NOT DETECT); Cyclospora Cayetanensis Not Detected (NOT DETECT); Entamoeba Histolytica Not Detected (NOT DETECT); Enteroaggregative E. coli-EAEC Not Detected (NOT DETECT); Enteropathogenic E. coli-EPEC Not Detected (NOT DETECT); Enterotoxigenic E. coli-ETEC Not Detected (NOT DETECT); Giardia Lamblia Not Detected (NOT DETECT); Norovirus GI/GII Not Detected (NOT DETECT); Plesiomonas Shigelloides Not Detected (NOT DETECT); Rotavirus A Not Detected (NOT DETECT); Salmonella Sp Not Detected (NOT DETECT); Sapovirus Not Detected (NOT DETECT); Shigella/Enteroin E. coli-EIEC Not Detected (NOT DETECT); Vibrio Cholerae Not Detected (NOT DETECT); Vibrio Sp Not Detected (NOT DETECT); Yersinia Enterocolitica Not Detected (NOT DETECT)
[2023-02-25 18:56] VITALS: BP 161/119
--- NOTE | 2023-02-25 19:28 | NUR ---
SHIFT SUMMARY- PT ADMITTED THROUGH THE ED FOR POSSIBLE GI BLEED SHE HAS HAD APPROXIMATELY 750ML OF AUDREY RED LIQUID STOOL. SAMPLE SENT TO THE LAB. PER LAB SHE IS POSSITIVE FOR E-COLI 0157 THIS HAS TO BE REPORTED TO THE HEALTH DEPARTMENT. PT PLACED INISOLATION FOR IT AT THIS TIME. CALLED AND LEFT A MESSAGE WITH INFECTION CONTROL TO DETERMINE IF ISOLATION IS NEEDED OR NOT. PT HAS BEEN LETHARGIC SINCE ADMISSION TO MEDICAL FLOOR. WORDS A LITTLE GARBLED WHEN SHE IS AWAKE. PT HAS HAD VERY HIGH BPS SINCE ARRIVING AT THE HOSPITAL AND HER HGB IS TRENDING UP STARTING AT 17.1 AND INCREASING TO 18.1. AWARE. PT HAS REPEAT H&H ORDERED FOR 1999. PT IS IN BED, CALL LIGHT IN REACH NO S&S OF DISTRESS. SBP DOWN TO 160'S ON LAST VITALS AFTER THE IV HYDRALIZINE. NIGHT RN AWARE. PASSED INFO ON IN REPORT.
[2023-02-25 20:49] LABS: Hematocrit 55.2 % (33.0-51.0); Hemoglobin 18.8 g/dL (11.5-16.0)
[2023-02-25 21:46] VITALS: BP 147/129
--- NOTE | 2023-02-25 21:50 | NUR ---
CALLED JERRI RACK PRODUCTION WORKER REGARDING PT YELLING IN PAIN AND REPEATEDLY SAYING "CALL MY DOCTOR, I AM SO SICK." WHEN I ASKED THE PT WAS SHE MEANS BY SHE IS SO SICK SHE EXPLAINS THAT HER EVERYTHING HURTS. I ALSO TOLD JERRI THAT THE PTS BLOOD PRESSURE IS ELEVATED AT 147/129. DESPITE RECIEVING PRN HYDRALAZINE. UPDATED JERRI ON PTS HGB CONTINUING TO TREND UPWARD DESPITE HAVING RECTAL BLEEDING, WELL THE PT IS DIAPHORETIC AND CLAMMY. PER JERRI RACK PRODUCTION WORKER, ORDER STAT H&H, MEDICATE FOR PAIN AND CONTINUE TO MONITOR VITALS. GI HAS ALREADY CONSULTED PT. JERRI SUSPECTS THE PT IS DEHYDRATED, WE HAVE NS RUNNING AT 100MLS/HR.
[2023-02-25 22:15] LABS: Hemoglobin 19.2 g/dL (11.5-16.0)
[2023-02-25 22:17] LABS: Hematocrit 56.4 % (33.0-51.0)
[2023-02-26 01:34] VITALS: BP 161/110
--- NOTE | 2023-02-26 04:18 | NUR ---
SHIFT SUMMARY; PT IS AXO X4 WHEN AWAKE, HOWEVER PT HAS BEEN VERY DROWSY THIS EVENING. WHEN PT IS AWAKE SHE IS MOANING IN PAIN, AND SAYING "CALL MY DOCTOR, I AM SICK". PTS BLOOD PRESSURES HAVE BEEN ELEVATED THIS EVENING. I HAVE MEDICATED THE PT FOR PAIN AND NAUSEA ONCE THIS SHIFT AND WILL MEDICATE HER FOR PAIN AGAIN WHEN SHE WAKES UP NEXT. THE PT HAS BEEN SLEEPING MOST OF THE NIGHT BUT WHEN SHE WAKES UP TO HAVE A BM SHE IS IN AN ALMOST PANIC LIKE STATE. I CALLED JERRI BYRNES REGARDING THE PT EARLIER THIS SHIFT, REFER TO PREVIOUS NOTE. PT IS CURRENTLY SLEEPING IN BED WITH THE BED IN THE LOWEST POSITION AND THE CALL LIGHT AT BEDSIDE. FIRE SAFETY MAINTAINED T/O SHIFT.
[2023-02-26 05:27] VITALS: BP 157/94
[2023-02-26 06:17] LABS: Hematocrit 53.4 % (33.0-51.0); Hemoglobin 18.4 g/dL (11.5-16.0); Mean Corpuscular HGB 29.7 pg (26.0-34.0); Mean Corpuscular HGB Conc 34.5 g/dL (31.5-36.5); Mean Corpuscular Volume 86 fL (80-100); Mean Platelet Volume 9.5 fL (9.1-12.4); Platelet Count 261 K/mm3 (150-400); RDW Coefficient Variation 13.1 % (11.7-14.2); RDW Standard Deviation 41.1 fL (35.1-46.3); Red Blood Cell Count 6.19 M/mm3 (3.80-5.20); White Blood Cell Count 21.98 K/mm3 (4.00-11.30)
[2023-02-26 06:32] LABS: Bun/Creatinine Ratio 22.8 (12.0-20.0); Calcium, Blood 8.2 mg/dL (8.5-10.1); Creatinine, Blood 0.75 mg/dL (0.40-1.00); Potassium, Blood 4.1 mmol/L (3.5-5.5)
[2023-02-26 07:55] VITALS: BP 157/97
[2023-02-26 16:06] VITALS: BP 167/90
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
[2023-02-26 19:18] VITALS: BP 146/90
[2023-02-26] MEDS ORDERED: ALDACTONE100 MG PO (19:39)
[2023-02-27 02:25] VITALS: BP 147/78
--- NOTE | 2023-02-27 04:27 | NUR ---
SHIFT SUMMARY PT IS ALERT AND ORIENTED X4. PT CONTINUING TO HAVE LOOSE, LIQUID DARK STOOL. ONE EPISODE THIS SHIFT. PAIN TREATED PER EMAR. PT DID SLEEP MOST OF THE NIGHT. NO ACUTE CHANGES OVERNIGHT. PT DENIES SMOKING ANY PRODUCT; PT IS R/A. DURING ROUNDING, EDUCATION PROVIDED ON THE RISKS OF INJURY WHILE USING ANY IGNITION SOURCE AROUND OXYGEN. PT VERBALIZES UNDERSTANDING. PT DENIES HAVING ANY IGNITION SOURCES. NO VISITORS THIS SHIFT. BED IS THE LOWEST POSITION WITH CALL LIGHT IN REACH.
[2023-02-27 07:21] VITALS: BP 153/93
[2023-02-27 14:56] VITALS: BP 150/71
--- NOTE | 2023-02-27 16:54 | NUR ---
THE PATIENT CONTINUES TO HAVE LOOSE STOOLS, AND COMPLAINS OF PAIN AND HAS SLEPT MOST OF THE SHIFT. KAE LOPES WAS VISITED THE PATIENT. THE PATIENT'S MOTHER CAME AND VISITED ALSO. THE PATIENT'S DOCTOR D/C'ED THE PATIENT'S MORPHINE OREDE AND REPLACD IT WITH TYLENOL. THE PATIENT IS ALERT AND ORIENATED X4.
[2023-02-27 21:08] VITALS: BP 158/97
[2023-02-28 02:50] VITALS: BP 156/92
--- NOTE | 2023-02-28 04:42 | NUR ---
SHIFT SUMMARY ADMITTED FOR RECTAL BLEED. FULL CODE. WE ARE MONITORING LABS. SHE DID REFUSE LAB DRAWS EARLIER THIS SHIFT, WE WILL ATTEMPT LAB DRAWS AGAIN. DR. PAL IS GI CONSULT. NS INFUSING ORDERED. CLEAR LIQUID DIET, NO N/V REPORTED. SHE HAS CALLED OUT THROUGHOUT THIS SHIFT. I DID NOTE THAT WE ARE HOLDING HER HOME XANAX AND ADDERALL. SHE IS INDEPENDENT TO [facility]. E. COLI DETECTED IN STOOL.
[2023-02-28 06:35] LABS: BASOPHILS ABSOLUTE AUTO 0.02 K/mm3 (0.00-0.23); BASOPHILS PERCENT AUTO 0 % (0-2); EOSINOPHILS ABSOLUTE AUTO 0.07 K/mm3 (0.00-0.68); EOSINOPHILS PERCENT AUTO 0 % (0-6); Hematocrit 42.1 % (33.0-51.0); Hemoglobin 14.9 g/dL (11.5-16.0); IMMATURE GRAN ABSOLUTE AUTO 0.16 K/mm3 (0.00-0.10); IMMATURE GRAN PERCENT AUTO 1 % (0-1); LYMPHOCYTES ABSOLUTE AUTO 1.44 K/mm3 (0.84-5.20); LYMPHOCYTES PERCENT AUTO 8 % (21-46); MONOCYTES ABSOLUTE AUTO 1.23 K/mm3 (0.16-1.47); MONOCYTES PERCENT AUTO 7 % (4-13); Mean Corpuscular HGB 30.1 pg (26.0-34.0); Mean Corpuscular HGB Conc 35.4 g/dL (31.5-36.5); Mean Corpuscular Volume 85 fL (80-100); Mean Platelet Volume 9.9 fL (9.1-12.4); NEUTROPHILS ABSOLUTE AUTO 15.72 K/mm3 (1.96-9.15); NEUTROPHILS PERCENT AUTO 84 % (41-73); Platelet Count 194 K/mm3 (150-400); RDW Coefficient Variation 12.9 % (11.7-14.2); RDW Standard Deviation 39.8 fL (35.1-46.3); Red Blood Cell Count 4.95 M/mm3 (3.80-5.20); White Blood Cell Count 18.64 K/mm3 (4.00-11.30)
[2023-02-28 07:02] LABS: Albumin, Blood 2.4 g/dL (3.4-5.0); Albumin/Globulin Ratio 0.8 (0.8-1.8); Bilirubin, Total 0.8 mg/dL (0.1-1.0); Bun/Creatinine Ratio 14.8 (12.0-20.0); Calcium, Blood 7.7 mg/dL (8.5-10.1); Creatinine, Blood 0.61 mg/dL (0.40-1.00); Globulin, Blood 3.2 g/dL (2.2-4.0); Potassium, Blood 3.4 mmol/L (3.5-5.5); Total Protein, Blood 5.6 g/dL (6.4-8.2)
[2023-02-28 07:54] VITALS: BP 129/93
[2023-02-28 07:55] VITALS: BP 128/90
[2023-02-28 08:35] LABS: Magnesium, Blood 1.8 mg/dL (1.6-2.4); Phosphorus, Blood 2.2 mg/dL (2.5-4.9)
--- NOTE | 2023-02-28 10:02 | NUR ---
LOST IV ACCESS MULTIPLE ATTEMPTS TO RESART. CONSULT FOR POWER GLIDE MADE. POWER GLIDE ATTEMPTED BY JOSE JASON. UNSUCCESSFUL. ADDITIONAL ASSIST FOR POWER GLIDE REQUESTED. CONTINUE POC.
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
[2023-02-28 15:05] VITALS: BP 144/88
--- NOTE | 2023-02-28 17:39 | NUR ---
DISCHARGE PT WAS UNWILLING TO WAIT FOR DR OCHOA ORDERS. SHE LEFT AMA. POWER GLIDE REMOVED WITH CATHATER INTACT. PRESSURE DRESSING APPLIED TO SITE. TRANSFERED OUT TO VEHICLE VIA W/C. CONTINUE POC.
== END 2023-02-28 16:50 | disposition left against medical advice (07) | DRG 372 ==
LOC: ER 06:26 → MEDS 12:30
PROVIDERS: Emergency Medicine; Internal Medicine; Internal Medicine Gastroenterology; Nurse Practitioner Acute Care; ADMIT Internal Medicine
DX: A04.4 Other intestinal Escherichia coli infections (principal); E87.20 Acidosis, unspecified; Z68.42 Body mass index [BMI] 45.0-49.9, adult; B96.21 Shiga toxin-producing Escherichia coli [E. coli] [STEC] O157 as the cause of diseases classified elsewhere; K52.9 Noninfective gastroenteritis and colitis, unspecified; K70.31 Alcoholic cirrhosis of liver with ascites; K63.5 Polyp of colon; D75.1 Secondary polycythemia; F90.9 Attention-deficit hyperactivity disorder, unspecified type; R77.2 Abnormality of alphafetoprotein; M85.80 Other specified disorders of bone density and structure, unspecified site; K80.20 Calculus of gallbladder without cholecystitis without obstruction; F10.10 Alcohol abuse, uncomplicated; E66.01 Morbid (severe) obesity due to excess calories; B18.2 Chronic viral hepatitis C; F41.9 Anxiety disorder, unspecified; F32.9 Major depressive disorder, single episode, unspecified; E55.9 Vitamin D deficiency, unspecified; F17.200 Nicotine dependence, unspecified, uncomplicated; Z98.890 Other specified postprocedural states; Z88.1 Allergy status to other antibiotic agents; Z88.8 Allergy status to other drugs, medicaments and biological substances; Z79.899 Other long term (current) drug therapy; Z53.29 Procedure and treatment not carried out because of patient's decision for other reasons
CPT/HCPCS: 36415; 74177; 80048; 80053; 83690; 83735; 84100; 85014; 85018; 85025; 85027; 86850; 86900; 86901; 87507; 93005; 93010; 96361; 96374-59; 96375; 96376; 99285-25; A9270; C9113; J0360; J0780; J2270; J2405; J7030; J7120; Q9967

== ENCOUNTER 2023-03-08 13:40 | Emergency (ER) | payer OTHER ==
[~2023-03-08] VITALS: Ht 195.6 cm; Wt 124.7 kg
[~2023-03-08 13:40] MED LIST changes: +ALDACTONE100 MG PO
[2023-03-08 13:47] VITALS: BP 137/101
[2023-03-08 14:43] LABS: BASOPHILS ABSOLUTE AUTO 0.02 K/mm3 (0.00-0.23); BASOPHILS PERCENT AUTO 0 % (0-2); EOSINOPHILS ABSOLUTE AUTO 0.18 K/mm3 (0.00-0.68); EOSINOPHILS PERCENT AUTO 2 % (0-6); Hematocrit 41.7 % (33.0-51.0); Hemoglobin 14.1 g/dL (11.5-16.0); IMMATURE GRAN ABSOLUTE AUTO 0.08 K/mm3 (0.00-0.10); IMMATURE GRAN PERCENT AUTO 1 % (0-1); LYMPHOCYTES ABSOLUTE AUTO 1.26 K/mm3 (0.84-5.20); LYMPHOCYTES PERCENT AUTO 12 % (21-46); MONOCYTES ABSOLUTE AUTO 0.62 K/mm3 (0.16-1.47); MONOCYTES PERCENT AUTO 6 % (4-13); Mean Corpuscular HGB Conc 33.8 g/dL (31.5-36.5); Mean Corpuscular Volume 89 fL (80-100); Mean Platelet Volume 9.4 fL (9.1-12.4); NEUTROPHILS ABSOLUTE AUTO 8.44 K/mm3 (1.96-9.15); NEUTROPHILS PERCENT AUTO 80 % (41-73); Platelet Count 264 K/mm3 (150-400); RDW Coefficient Variation 13.5 % (11.7-14.2); RDW Standard Deviation 43.9 fL (35.1-46.3)
[2023-03-08 15:08] LABS: Albumin, Blood 3.4 g/dL (3.4-5.0); Albumin/Globulin Ratio 0.8 (0.8-1.8); Bilirubin, Total 0.5 mg/dL (0.1-1.0); Bun/Creatinine Ratio 12.5 (12.0-20.0); Calcium, Blood 9.1 mg/dL (8.5-10.1); Creatinine, Blood 0.72 mg/dL (0.40-1.00); Globulin, Blood 4.1 g/dL (2.2-4.0); Total Protein, Blood 7.5 g/dL (6.4-8.2)
== END 2023-03-08 16:45 | disposition home or self-care (01) ==
LOC: ER 13:40
PROVIDERS: Emergency Medicine
DX: R53.1 Weakness (principal); B19.20 Unspecified viral hepatitis C without hepatic coma; Z88.8 Allergy status to other drugs, medicaments and biological substances; Z88.1 Allergy status to other antibiotic agents; Z87.891 Personal history of nicotine dependence
CPT/HCPCS: 80053; 82140; 83690; 84484; 85025; 93005; 93010; 99284-25

== ENCOUNTER 2023-03-23 12:53 | Day surgery (SDC) | payer OTHER ==
[~2023-03-23] VITALS: Ht 165.1 cm; Wt 122.7 kg
[2023-03-23] MEDS ORDERED: ALBU90OI (13:18)
--- NOTE | 2023-03-23 14:10 | NUR ---
03/23/23 1410 SARAH FLYNN PATIENT SCHEDULED FOR DOUBLE, EGD PERFORMED WITHOUT DIFFICULTY. ATTTEMPTED COLONOSCOPY, ABORTED PROCEDURE DUE TO POOR PREP.
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
[2023-03-23 14:58] VITALS: BP 112/70
== END 2023-03-23 14:50 | disposition home or self-care (01) ==
LOC: ORSCSDS 12:53
PROVIDERS: Internal Medicine Gastroenterology
PROC: 0DJD8ZZ Inspection of Lower Intestinal Tract, Via Natural or Artificial Opening Endoscopic (ICD-10-PCS; principal; 2023-03-23 14:00)
PROC: 0DJ08ZZ Inspection of Upper Intestinal Tract, Via Natural or Artificial Opening Endoscopic (ICD-10-PCS; principal; 2023-03-23 14:00)
DX: K74.60 Unspecified cirrhosis of liver (principal); Z12.11 Encounter for screening for malignant neoplasm of colon; K57.30 Diverticulosis of large intestine without perforation or abscess without bleeding; Z86.010 Personal history of colon polyps; Z87.891 Personal history of nicotine dependence; F32.9 Major depressive disorder, single episode, unspecified; Z79.899 Other long term (current) drug therapy; E66.01 Morbid (severe) obesity due to excess calories; Z68.42 Body mass index [BMI] 45.0-49.9, adult; Z86.19 Personal history of other infectious and parasitic diseases
CPT/HCPCS: J2001; J2704; J7120

== ENCOUNTER 2023-12-01 17:37 | Emergency (ER) | payer OTHER ==
[~2023-12-01] VITALS: Ht 165.1 cm; Wt 129.3 kg
[~2023-12-01 17:37] MED LIST changes: +ALBU90OI
[2023-12-01 19:09] LABS: BASOPHILS ABSOLUTE AUTO 0.03 K/mm3 (0.00-0.23); BASOPHILS PERCENT AUTO 0 % (0-2); EOSINOPHILS ABSOLUTE AUTO 0.11 K/mm3 (0.00-0.68); EOSINOPHILS PERCENT AUTO 1 % (0-6); Hematocrit 43.9 % (33.0-51.0); Hemoglobin 14.8 g/dL (11.5-16.0); IMMATURE GRAN ABSOLUTE AUTO 0.02 K/mm3 (0.00-0.10); IMMATURE GRAN PERCENT AUTO 0 % (0-1); LYMPHOCYTES ABSOLUTE AUTO 2.02 K/mm3 (0.84-5.20); LYMPHOCYTES PERCENT AUTO 23 % (21-46); MONOCYTES ABSOLUTE AUTO 0.49 K/mm3 (0.16-1.47); MONOCYTES PERCENT AUTO 6 % (4-13); Mean Corpuscular HGB 29.6 pg (26.0-34.0); Mean Corpuscular HGB Conc 33.7 g/dL (31.5-36.5); Mean Corpuscular Volume 88 fL (80-100); Mean Platelet Volume 9.8 fL (9.1-12.4); NEUTROPHILS ABSOLUTE AUTO 5.99 K/mm3 (1.96-9.15); NEUTROPHILS PERCENT AUTO 69 % (41-73); Platelet Count 258 K/mm3 (150-400); RDW Coefficient Variation 12.9 % (11.7-14.2); RDW Standard Deviation 41.1 fL (35.1-46.3); White Blood Cell Count 8.66 K/mm3 (4.00-11.30)
[2023-12-01 19:10] VITALS: BP 143/110
[2023-12-01 19:36] LABS: Albumin, Blood 4.5 g/dL (3.4-5.0); Albumin/Globulin Ratio 1.1 (0.8-1.8); Bilirubin, Total 0.7 mg/dL (0.1-1.0); Bun/Creatinine Ratio 13.3 (12.0-20.0); Calcium, Blood 9.6 mg/dL (8.5-10.1); Creatinine, Blood 0.98 mg/dL (0.40-1.00); Globulin, Blood 4.1 g/dL (2.2-4.0); Potassium, Blood 4.3 mmol/L (3.5-5.5); Total Protein, Blood 8.6 g/dL (6.4-8.2)
[2023-12-01 20:30] LABS: Source, Urine Clean Catch
[2023-12-01] MEDS ORDERED: AMOCLA875 PO (20:31)
[2023-12-01 20:33] LABS: Appearance, Urine Clear (Clear); Bilirubin, Urine Neg (Neg); Blood, Urine Neg (Neg); Glucose Qualitative, Urine Neg (Neg); Ketones, Urine Neg (Neg); Leukocyte Esterase, Urine Neg (Neg); Nitrite, Urine Neg (Neg); Protein, Urine Neg (Neg); Urobilinogen, Urine NORM (Normal)
[2023-12-01 20:41] LABS: Color, Urine Pale Yellow (P-Yellow)
== END 2023-12-01 20:48 | disposition home or self-care (01) ==
LOC: ER 17:37
PROVIDERS: Emergency Medicine
DX: K57.32 Diverticulitis of large intestine without perforation or abscess without bleeding (principal); Z88.8 Allergy status to other drugs, medicaments and biological substances; Z88.1 Allergy status to other antibiotic agents; Z79.899 Other long term (current) drug therapy; E66.9 Obesity, unspecified; M16.12 Unilateral primary osteoarthritis, left hip; Z87.891 Personal history of nicotine dependence
CPT/HCPCS: 74177; 80053; 81003; 85025; 99284-25; Q9967

== ENCOUNTER → 2024-08-29 | Outpatient (CLI) | payer OTHER | END | disposition home or self-care (01) | LOC: LAB 17:18 → LAB SHORT 17:18 | DX: R35.0 Frequency of micturition (principal) | CPT/HCPCS: 87077; 87086; 87186 ==

== ENCOUNTER 2024-10-24 14:28 | Emergency (ER) | payer OTHER ==
[~2024-10-24] VITALS: Ht 165.1 cm; Wt 133.8 kg
[2024-10-24 14:34] VITALS: BP 119/90
[2024-10-24 15:27] LABS: Bilirubin, Total 0.8 mg/dL (0.1-1.0); Bun/Creatinine Ratio 21.1 (12.0-20.0); Calcium, Blood 9.4 mg/dL (8.5-10.1); Creatinine, Blood 0.81 mg/dL (0.40-1.00); Potassium, Blood 4.5 mmol/L (3.5-5.5)
== END 2024-10-24 16:20 | disposition left against medical advice (07) ==
LOC: ER 14:28
PROVIDERS: Student in an Organized Health Care Education/Training Program
DX: R60.0 Localized edema (principal); K74.60 Unspecified cirrhosis of liver; R41.0 Disorientation, unspecified; Z53.29 Procedure and treatment not carried out because of patient's decision for other reasons
CPT/HCPCS: 80053; 82140; 99281

== ENCOUNTER → 2025-02-11 | Outpatient (CLI) | payer OTHER | END | disposition home or self-care (01) | LOC: LAB SHORT 17:13 → LAB 17:13 | DX: N39.0 Urinary tract infection, site not specified (principal) | CPT/HCPCS: 87077; 87086; 87186 ==

== ENCOUNTER 2025-05-04 17:20 | Emergency (ER) | payer OTHER ==
[~2025-05-04] VITALS: Ht 165.1 cm; Wt 117.9 kg
[2025-05-04 18:37] LABS: BASOPHILS ABSOLUTE AUTO 0.03 K/mm3 (0.00-0.23); BASOPHILS PERCENT AUTO 0 % (0-2); EOSINOPHILS ABSOLUTE AUTO 0.17 K/mm3 (0.00-0.68); EOSINOPHILS PERCENT AUTO 2 % (0-6); Hematocrit 44.9 % (33.0-51.0); Hemoglobin 15.5 g/dL (11.5-16.0); IMMATURE GRAN ABSOLUTE AUTO 0.04 K/mm3 (0.00-0.10); IMMATURE GRAN PERCENT AUTO 1 % (0-1); LYMPHOCYTES ABSOLUTE AUTO 1.88 K/mm3 (0.84-5.20); LYMPHOCYTES PERCENT AUTO 23 % (21-46); MONOCYTES ABSOLUTE AUTO 0.47 K/mm3 (0.16-1.47); MONOCYTES PERCENT AUTO 6 % (4-13); Mean Corpuscular HGB Conc 34.5 g/dL (31.5-36.5); Mean Corpuscular Volume 87 fL (80-100); NEUTROPHILS ABSOLUTE AUTO 5.66 K/mm3 (1.96-9.15); NEUTROPHILS PERCENT AUTO 69 % (41-73); NRBC ABSOLUTE 0.00 K/mm3 (0.00-0.02); NRBC Auto 0.0 /100 WBC (0.0-0.2); Platelet Count 266 K/mm3 (150-400); RDW Coefficient Variation 12.7 % (11.7-14.2); RDW Standard Deviation 40.5 fL (35.1-46.3)
[2025-05-04 19:00] LABS: Alanine Aminotransfer (ALT/SGP 39.0 U/L (12-78); Albumin, Blood 4.3 g/dL (3.4-5.0); Albumin/Globulin Ratio 1.1 (0.8-1.8); Anion Gap 6.0 mmol/L (3-11); Aspartate Aminotrans (AST/SGOT 23.0 U/L (12-37); Bilirubin, Total 0.7 mg/dL (0.1-1.0); Blood Urea Nitrogen 13.0 mg/dL (8-24); CO2, Blood 28.0 mmol/L (21-32); Calcium, Blood 9.6 mg/dL (8.5-10.1); Chloride, Blood 107.0 mmol/L (98-108); Creatinine, Blood 0.85 mg/dL (0.40-1.00); Globulin, Blood 3.9 g/dL (2.2-4.0); Glucose, Blood 118.0 mg/dL (70-99); Potassium, Blood 4.2 mmol/L (3.5-5.5); Sodium, Blood 137.0 mmol/L (136-145); Total Protein, Blood 8.2 g/dL (6.4-8.2)
[2025-05-04] MEDS ORDERED: NS 1,000 ML IV SCH (20:30)
[2025-05-04 20:46] LABS: Source, Urine Clean Catch
[2025-05-04 21:00] LABS: Bilirubin, Urine Neg (Neg); Color, Urine Yellow (P-Yellow); Glucose Qualitative, Urine Neg (Neg); Ketones, Urine Neg (Neg); Leukocyte Esterase, Urine 3+ (Neg); Protein, Urine 2+ (Neg); Specific Gravity, Urine 1.025 (1.003-1.022); Urobilinogen, Urine NORM (Normal)
[2025-05-04 21:09] LABS: Red Blood Cells, Urine 0-2 /hpf (0-2); White Blood Cells, Urine TNTC /hpf (0-5)
[2025-05-04] MEDS ORDERED: CefTRIAXone Sodium 1,000 MG in NS 100 ML IV ONE (21:15)
[2025-05-04] MEDS ORDERED: Ondansetron Odt8 MG MM (21:16)
[2025-05-04] MEDS ORDERED: CEFD300 PO (21:16)
[2025-05-04 21:42] VITALS: BP 151/85
[2025-05-04 21:44] LABS: Influenza A, PCR NEGATIVE (NEGATIVE); Influenza B, PCR NEGATIVE (NEGATIVE); Resp Syncytial Virus, PCR NEGATIVE (NEGATIVE); SARS-Cov-2 (COVID-19) PCR, MMC NEGATIVE (NEGATIVE)
== END 2025-05-04 22:15 | disposition home or self-care (01) ==
LOC: ER 17:20
PROVIDERS: Emergency Medicine; Student in an Organized Health Care Education/Training Program
DX: N39.0 Urinary tract infection, site not specified (principal); Z87.891 Personal history of nicotine dependence; Z79.899 Other long term (current) drug therapy; Z88.1 Allergy status to other antibiotic agents; Z88.8 Allergy status to other drugs, medicaments and biological substances
CPT/HCPCS: 80053; 81001; 83690; 85025; 87077; 87086; 87147; 87186; 87637; 93005; 93010; 96361; 96365; 99284-25; J0696; J7030